=== PATIENT | male | born 1955 | race Caucasian/White ===

== ENCOUNTER 2019-04-22 15:58 | Inpatient (IN) | payer BC, OTHER ==
[2019-04-22] MEDS ORDERED: ASPIRIN 81 MG PO STA (15:59)
[2019-04-22] MEDS ORDERED: HEPARIN SODIUM,PORCINE 5,000 UNIT/ML 1 ML VIAL IV PRN (15:59)
[2019-04-22] MEDS ORDERED: HEPARIN SODIUM,PORCINE 5,000 UNIT/ML 1 ML VIAL IV ONE (15:59)
[2019-04-22] MEDS ORDERED: NITROGLYCERIN SL TABS 0.4 MG TAB SUBLINGUAL PRN ×2 (15:59→17:21)
[2019-04-22] MEDS ORDERED: HEPARIN SOD,PORK IN 0.45% NACL 25,000 UNIT in 0.45% NACL 1 250ML.BAG IV SCH (16:00)
[2019-04-22] MEDS ORDERED: LABETALOL SYRINGE 5 MG/ML IVP STA (16:02)
[2019-04-22] MEDS: ATORVASTATIN 80 MG TAB PO SCH (16:07)
--- NOTE | 2019-04-22 16:08 | ED ---
Chest Pain HPI - General Chief Complaint: Chest Pain Stated Complaint: STEMI Time Seen by Provider: 04/22/19 15:59 Source: patient, RN notes reviewed, old records reviewed Mode of arrival: ambulatory Limitations: no limitations - History of Present Illness Initial Comments: This is a 63-year-old male the ER for evasive chest pain. Patient presents by E MS for evaluation of chest pain. Patient prehospital EKG showing ST elevation. History obtained from EMS as well as patient patient has high blood pressure high cholesterol. No prior heart attack, patient has seen a data entry representative in the past with no significant findings MD Complaint: chest pain -: hour(s) Onset: during rest, during exertion Pain Location: substernal, left chest Pain Radiation: LUE Severity: moderate Severity scale (1-10): 6 Quality: heaviness Consistency: constant Improves With: nothing Worsens With: nothing Anginal Symptoms: nausea, diaphoresis, dyspnea Treatments Prior to Arrival: none - Related Data Home Medications Medication Instructions Recorded Confirmed No Known Home Medications 04/22/19 04/22/19 Allergies Allergy/AdvReac Type Severity Reaction Status Date / Time No Known Allergies Allergy Verified 04/22/19 16:19 Review of Systems ROS Statement: Those systems with pertinent positive or pertinent negative responses have been documented in the HPI. ROS Other: All systems not noted in ROS Statement are negative. EKG Findings - EKG Comments: EKG Findings:: Prehospital EKG shows ST elevation TN anteriorly with inferior ST depression. Patient did have ventricular tachycardia with cardioversion. EKG shows normal sinus rhythm rate of 90, NM 152, QRS 80, QTC [address] elevation V1 V2 with inferior depression Past Medical History Past Medical History: Hyperlipidemia, Hypertension History of Any Multi-Drug Resistant Organisms: None Reported Past Surgical History: Appendectomy, Tonsillectomy Past Psychological History: No Psychological Hx Reported Smoking Status: Never smoker Past Alcohol Use History: None Reported Past Drug Use History: None Reported General Exam Limitations: no limitations General appearance: alert, in no apparent distress Head exam: Present: atraumatic, normocephalic, normal inspection Eye exam: Present: normal appearance, PERRL, EOMI. Absent: scleral icterus, conjunctival injection, periorbital swelling ENT exam: Present: normal exam, mucous membranes moist Neck exam: Present: normal inspection. Absent: tenderness, meningismus, lymph adenopathy Respiratory exam: Present: normal lung sounds bilaterally. Absent: respiratory distress, wheezes, rales, rhonchi, stridor Cardiovascular Exam: Present: regular rate, normal rhythm, normal heart sounds. Absent: systolic murmur, diastolic murmur, rubs, gallop, clicks GI/Abdominal exam: Present: soft, normal bowel sounds. Absent: distended, tenderness, guarding, rebound, rigid Extremities exam: Present: normal inspection, full ROM, normal capillary refill. Absent: tenderness, pedal edema, joint swelling, calf tenderness Back exam: Present: normal inspection Neurological exam: Present: alert, oriented X3, CN II-XII intact Psychiatric exam: Present: normal affect, normal mood Skin exam: Present: warm, dry, intact, normal color. Absent: rash Course Vital Signs 04/22/19 04/22/19 15:59 16:00 Temperature 98.2 F Pulse Rate 94 Pulse Rate [ 98 Respiratory Coordinator ] Respiratory 18 Rate Blood Pressure 180/86 O2 Sat by Pulse 98 Oximetry - Reevaluation(s) Reevaluation #1: 04/22/19 16:07 STEMI page STEMI prehospital EKG, cardiology team evaluated at bedside Reevaluation #2: 04/22/19 16:07 Medical record is reviewed Chest Pain MDM - MDM 63 male the ER for evaluation chest pain. Patient is positive ST elevation, patient brought in by EMS with prehospital EMS EKG showing ST elevation, patient did go into ventricular tachycardia or fibrillation was cardioverted, defibrillated. Patient admitted to the Pharmaceutical Analyst for current intervention Critical Care Time Critical Care Time: Yes Total Critical Care Time: 31 Disposition Clinical Impression: ST elevation myocardial infarction (STEMI) Disposition: ADMITTED IP TO THIS HOSP
[2019-04-22] MEDS ORDERED: METOPROLOL TARTRATE 5 MG/5 ML VIAL IVP ONE (16:10)
[2019-04-22 16:38] LABS: Basophils # (A) 0.1 k/uL (0-0.2); Basophils % (A) 1 %; Eosinophils # (A) 0.4 k/uL (0-0.7); Eosinophils % (A) 2 %; HCT 53.5 % (39.0-53.0); HGB 17.2 gm/dL (13.0-17.5); Lymphocytes # (A) 5.5 k/uL (1.0-4.8); Lymphocytes % (A) 33 %; MCH 27.1 pg (25.0-35.0); MCHC 32.1 g/dL (31.0-37.0); MCV 84.4 fL (80.0-100.0); Monocytes % (A) 6 %; Neutrophils # (A) 9.2 k/uL (1.3-7.7); Neutrophils % (A) 56 %; RBC 6.34 m/uL (4.30-5.90); RDW 14.7 % (11.5-15.5); WBC 16.5 k/uL (3.8-10.6)
[2019-04-22 16:42] LABS: Platelet Count 73 k/uL (150-450)
[2019-04-22] MEDS ORDERED: LIDOCAINE 1% INJ 10MG/ML (20 ML MDV) ONE (16:46)
[2019-04-22] MEDS ORDERED: MIDAZOLAM (PF) 2 MG/2 ML VIAL IVP ONE (16:46)
[2019-04-22] MEDS ORDERED: VERAPAMIL 2.5 MG/ML 2 ML AMP ONE (16:46)
[2019-04-22 16:47] LABS: ALT 34 U/L (21-72); AST 46 U/L (17-59); Albumin 4.6 g/dL (3.5-5.0); Alkaline Phosphatase 90 U/L (38-126); Anion Gap 13 mmol/L; Blood Urea Nitrogen 15 mg/dL (9-20); Calcium 9.1 mg/dL (8.4-10.2); Carbon Dioxide 22 mmol/L (22-30); Chloride 106 mmol/L (98-107); Glucose 110 mg/dL (74-99); Sodium 141 mmol/L (137-145); Total Bilirubin 0.9 mg/dL (0.2-1.3); Total Protein 7.6 g/dL (6.3-8.2)
[2019-04-22] MEDS ORDERED: LIDOCAINE 1% INJ 10MG/ML (20 ML MDV) SQ ONE (16:48)
[2019-04-22 16:51] LABS: Potassium 4.3 mmol/L (3.5-5.1)
[2019-04-22 16:58] LABS: Magnesium 2.4 mg/dL (1.6-2.3)
[2019-04-22] MEDS ORDERED: IV FLUID CONTINUATION 1,000 ML IV ONE (16:58)
[2019-04-22 17:00] LABS: Creatine Kinase MB 4.2 ng/mL (0.0-2.4)
[2019-04-22] MEDS ORDERED: BIVALIRUDIN BOLUS 250 MG/50 ML IV ONE (17:00)
[2019-04-22] MEDS ORDERED: BIVALIRUDIN 250 MG in SODIUM CHLORIDE 0.9% 34 ML IV ONE (17:00)
[2019-04-22 17:03] LABS: Partial Thromboplastin Time 25.2 sec (22.0-30.0); Prothrombin Time 10.5 sec (9.0-12.0)
[2019-04-22] MEDS ORDERED: PRASUGREL 10 MG TAB ONE (17:04)
[2019-04-22] MEDS ORDERED: PRASUGREL 10 MG TAB PO ONE (17:08)
[2019-04-22] MEDS ORDERED: IOPAMIDOL-370 100ML BTL INJ ONE (17:09)
[2019-04-22] MEDS ORDERED: MAG HYDROX/AL HYDROX/SIMETH 30 ML CUP PO PRN (17:21)
[2019-04-22] MEDS ORDERED: ATROPINE SULFATE 0.1 MG/ML 10ML SYRINGE IV PRN (17:21)
[2019-04-22] MEDS ORDERED: ZOLPIDEM 5 MG TAB PO PRN (17:21)
[2019-04-22] MEDS ORDERED: RX INFO: IV CONTRAST WAS GIVEN 1 EACH MISC MISCELLANE PRN (17:21)
--- NOTE | 2019-04-22 17:28 | P.CRDCN ---
History of Present Illness Consult date: 04/22/19 Chief complaint: Chest pain History of present illness: This is a pleasant 63-year-old gentleman with a past medical history significant for hypertension and dyslipidemia was brought to the emergency room earlier today with chest discomfort turned to be an acute anterior ST elevation myocardial infarction. The patient was in his usual state until earlier today when he started experiencing chest discomfort, in the mid of the chest, as a pressure on the chest. Ambulance was called and on the way to the emergency room, as a matter of fact just before the patient arrived to the emergency room, he did have an episode of V. fib terminated by 200 J and first attempt of shock. In the ER, the EKG showed an acute anterior ST elevation myocardial infarction with reciprocal changes in the inferolateral leads. Subsequently, the patient was taken emergently to the cardiac medical laboratory technician where he underwent heart catheterization from right groin approach and that revealed critical disease involving the proximal LAD with a lesion appears to be calcified in the range of 99.9% with haziness consistent with thrombus formation. The patient underwent successful stenting of the proximal LAD using drug eluting stent with a good angiographic results by the N and reduction of stenosis from 99% to 0%. By the end of the procedure, the patient was chest pain-free but he still have some ST segment elevation. The door to balloon was 65 minutes. The patient is going to be admitted to the intensive care unit where he would be started on dual antiplatelet therapy with aspirin and Effient and also he would be on anti- ischemic medication with metoprolol area beside that he would be on high intensity statin. We'll obtain an echocardiogram tomorrow morning to assess the LV function and wall motion abnormalities. Past Medical History Past Medical History: Hyperlipidemia, Hypertension History of Any Multi-Drug Resistant Organisms: None Reported Past Surgical History: Appendectomy, Tonsillectomy Past Psychological History: No Psychological Hx Reported Smoking Status: Never smoker Past Alcohol Use History: None Reported Past Drug Use History: None Reported Medications and Allergies Home Medications Medication Instructions Recorded Confirmed Type No Known Home Medications 04/22/19 04/22/19 History Allergies Allergy/AdvReac Type Severity Reaction Status Date / Time No Known Allergies Allergy Verified 04/22/19 16:19 Physical Exam Vitals: Vital Signs Temp Pulse Pulse Resp BP Pulse Ox 04/22/19 16:00 98 04/22/19 15:59 98.2 F 94 18 180/86 98 Intake and Output 04/22/19 04/22/19 04/22/19 06:59 14:59 22:59 Other: Weight 104.326 kg - Constitutional General appearance: no acute distress - Respiratory Respiratory: bilateral: CTA - Cardiovascular Rhythm: regular Heart sounds: normal: S1, S2 Results 04/22/19 16:04 04/22/19 16:04 Cardiac Enzymes 04/22/19 04/22/19 04/22/19 Range/Units 16:04 16:04 16:04 AST 46 (17-59) U/L CK-MB (CK-2) 4.2 H (0.0-2.4) ng/mL Troponin I 0.217 H* (0.000-0.034) ng/mL Coagulation 04/22/19 Range/Units 16:04 PT 10.5 (9.0-12.0) sec APTT 25.2 (22.0-30.0) sec CBC 04/22/19 Range/Units 16:04 WBC 16.5 H (3.8-10.6) k/uL RBC 6.34 H (4.30-5.90) m/uL Hgb 17.2 (13.0-17.5) gm/dL Hct 53.5 H (39.0-53.0) % Plt Count 73 L (150-450) k/uL Comprehensive Metabolic Panel 04/22/19 Range/Units 16:04 Sodium 141 (137-145) mmol/L Potassium 4.3 (3.5-5.1) mmol/L Chloride 106 (98-107) mmol/L Carbon Dioxide 22 (22-30) mmol/L BUN 15 (9-20) mg/dL Creatinine 0.83 (0.66-1.25) mg/dL Glucose 110 H (74-99) mg/dL Calcium 9.1 (8.4-10.2) mg/dL AST 46 (17-59) U/L ALT 34 (21-72) U/L Alkaline Phosphatase 90 (38-126) U/L Total Protein 7.6 (6.3-8.2) g/dL Albumin 4.6 (3.5-5.0) g/dL Current Medications Generic Name Dose Route Start Last Admin Trade Name Freq PRN Reason Stop Dose Admin Aspirin 325 mg 04/23/19 09:00 Aspirin PO DAILY [facility] Atorvastatin Calcium 80 mg 04/23/19 09:00 04/22/19 16:07 Lipitor PO 80 mg DAILY [facility] Administration Heparin Sodium (Porcine) 0 unit 04/22/19 15:59 Heparin IV Q6HR PRN Low PTT Protocol Heparin Sodium/Sodium Chloride 250 mls @ 10.005 mls/hr 04/22/19 16:00 25,000 unit/ Sodium Chloride IV .Q24H [facility] Protocol 9.59 UNITS/KG/HR Metoprolol Tartrate 25 mg 04/22/19 21:00 Lopressor PO BID [facility] Nitroglycerin 0.4 mg 04/22/19 15:59 Nitrostat SUBLINGUAL Q5M PRN Chest Pain Intake and Output 04/22/19 04/22/19 04/22/19 06:59 14:59 22:59 Other: Weight 104.326 kg Patient Weight 04/23/19 06:59 Weight 104.326 kg 04/22/19 16:04 04/22/19 16:04 Assessment and Plan Assessment: Assessment #[address] elevation myocardial infarction #2 cardiac arrest was V. fib. Currently the patient is in normal sinus mechanism #3 hypertension #4 dyslipidemia Plan #1 standard right groin care. #2 dual antiplatelet therapy #3 high intensity statin #4 an echocardiogram was Doppler #5 anti-ischemic medication #6 follow up with the patient Thank you for allowing us but spitting his care and we will continue following up with the patient
[2019-04-22] MEDS ORDERED: SODIUM CHLORIDE 0.9% 1,000 ML IV SCH (17:30)
--- NOTE | 2019-04-22 17:35 | XR ---
EXAMINATION TYPE: XR chest 1V portable DATE OF EXAM: 04/22/2019 COMPARISON: None INDICATION: Chest pain TECHNIQUE: Single frontal view of the chest is obtained. FINDINGS: The heart size is normal. The pulmonary vasculature is normal. The lungs are clear. IMPRESSION: 1. No acute pulmonary process.
[2019-04-22 17:42] LABS: Glucose,Whole Blood 118 mg/dL (75-99)
--- NOTE | 2019-04-22 21:10 | HP ---
HISTORY AND PHYSICAL CHIEF COMPLAINT: A 63-year-old white male with history of hypertension dyslipidemia, had some chest discomfort. He was found to have an acute anterior ST wave elevated myocardial infarction. Apparently cardiology came down. He had an episode of V. fib. First attempt at shock. EKG showed the SC. Taken to the cardiac cath, had heart catheterization. Critical disease involving the proximal LAD, calcified 99.9%. He had a successful stenting with drug-eluting stent with down to 0%. He was pain free at that point. He was taken to the ICU. He is on antiplatelet agents and Effient. Cardiology ordered metoprolol and high intensity statin and echo tomorrow. PAST MEDICAL HISTORY: Hypertension, dyslipidemia. SURGERIES: Appendectomy, tonsillectomy. No smoking. No alcohol. No illicit drugs. HOME MEDICATIONS: None. Temp 98.2, pulse 90-94, blood pressure 170s-180s/50s-60s. No acute distress. LUNGS: Clear. CARDIAC: S1-S2. GI: Soft. HEMATOLOGY: Negative Homans. ASSESSMENT: 1. Acute non anterior ST elevated myocardial infarction, status post left anterior descending PTCA. 2. Cardiac arrest versus ventricular fibrillation. 3. Hypertension. 4. Dyslipidemia. Dual antiplatelet agents, high-density statins, echo in the morning. Risk factor modification will be attempted. MMODL / IJN: [id number] /
[2019-04-22] MEDS: METOPROLOL TARTRATE 25 MG TAB PO SCH (21:18)
--- NOTE | 2019-04-22 22:01 | CC ---
CARDIAC CATHETERIZATION REPORT DATE OF SERVICE: April 22, 2019 PERFORMING PHYSICIAN: Jorge Vallejo MD, heating element repairer. PROCEDURE PERFORMED: 1. Selective right and left coronary angiogram. 2. Left heart catheterization. 3. Successful stenting of the proximal left anterior descending artery using a 3.25 x 15 mm Xience FELIPE with an excellent angiographic results and reduction of stenosis from 99% to 0%. INDICATION: This is a 63-year-old gentleman with history of hypertension and dyslipidemia who presented to the emergency room with chest discomfort and on the way to the ER, he went into VFib where he received shock by EMS. In the ER, he was found to be in acute anterior ST-elevation myocardial infarction. Because of that, an emergent heart catheterization was advised. APPROACH: Right common femoral artery. COMPLICATION: None. LEVEL OF SEDATION: Moderate with sedation length of 36 minutes. PROCEDURE DESCRIPTION: After obtaining an informed consent, the patient was brought to cardiac director geophysical laboratory. The right common femoral artery was cannulated using micropuncture technique, the micropuncture wire passed easily. Then I placed a 6-[place] Islander sheath in the right common femoral artery. After that I did selective right and left coronary angiogram. Selective right coronary angiogram was performed using JR4 catheter. Selective left coronary angiogram was performed using the XB 35 LAD guide. I did left heart catheterization using the JR4 catheter which flipped into the LV then and pullback across aortic valve. After that, I did intervene on the LAD. Please see a separate paragraph for that. SELECTIVE CORONARY ANGIOGRAM: 1. The right coronary artery is a large caliber vessel and it is a dominant vessel. The RCA is diffusely diseased up to about 50% in the proximal portion. Distally bifurcates into PDA and PLV branches, both appeared to be angiographically normal. 2. The left main is angiographically normal. The left main has mild disease only. It bifurcates into left circumflex, ramus intermedius, and left anterior descending artery. 3. The left circumflex is a large caliber vessel. It is a nondominant vessel. The left circumflex is angiographically normal and in the midportion gives rise into OM branch which appeared to be angiographically normal. 4. The ramus intermedius is a large caliber vessel and seems to be angiographically normal. 5. The LAD: The proximal LAD appeared to have a tight lesion in the range of 99.9%. This is by the bifurcation of a very small 1st diagonal branch. The mid LAD appeared to be normal and gives rise into a second diagonal branch which seems to be angiographically normal and the LAD after that appeared to have mild disease only. HEMODYNAMICS: The left ventricular end-diastolic pressure was about 4-6 mmHg without significant gradient across aortic valve. PCI OF THE LAD: Anticoagulation was initiated using Angiomax. Subsequently I did engage the left main using XB 35 LAD guide. I did cross the lesion using a run-through wire. Subsequently I did balloon angioplasty using 2.5 x 12 mm balloon before I deployed a 3.25 x 15 mm Xience FELIPE where the stent was positioned under fluoroscopy guidance and deployed under 14 atmospheres for 20 seconds with the following angiogram showing excellent angiographic results. The procedure was completed without any complication. CONCLUSION: 1. Acute anterior ST-elevation myocardial infarction complicated by cardiac arrest with VFib. 2. Critical disease involving the proximal LAD with thrombus formation. 3. Successful stenting of the mid LAD, the proximal LAD using 325 x 15 mm Xience FELIPE with an excellent angiographic results and reduction of stenosis from 99% to 0%. 4. Intermediate disease involving the right coronary artery in the proximal portion. POSTPROCEDURE MANAGEMENT: 1. Dual anti-platelet therapy. 2. Risk factor modifications. 3. Follow up with the patient. MMODL / IJN: [id number] /
[2019-04-23 05:01] LABS: Basophils # (A) 0.1 k/uL (0-0.2); Basophils % (A) 1 %; Eosinophils # (A) 0.2 k/uL (0-0.7); Eosinophils % (A) 2 %; HCT 47.6 % (39.0-53.0); HGB 15.3 gm/dL (13.0-17.5); Lymphocytes # (A) 2.4 k/uL (1.0-4.8); Lymphocytes % (A) 19 %; MCH 27.4 pg (25.0-35.0); MCHC 32.2 g/dL (31.0-37.0); MCV 85.1 fL (80.0-100.0); Mean Platelet Volume 8.2; Monocytes # (A) 0.7 k/uL (0-1.0); Monocytes % (A) 6 %; Neutrophils # (A) 8.7 k/uL (1.3-7.7); Neutrophils % (A) 71 %; Platelet Count 64 k/uL (150-450); RDW 14.7 % (11.5-15.5); WBC 12.4 k/uL (3.8-10.6)
[2019-04-23 05:14] LABS: ALT 45 U/L (21-72); AST 43 U/L (17-59); Albumin 3.4 g/dL (3.5-5.0); Alkaline Phosphatase 79 U/L (38-126); Anion Gap 6 mmol/L; Blood Urea Nitrogen 12 mg/dL (9-20); Calcium 8.1 mg/dL (8.4-10.2); Carbon Dioxide 24 mmol/L (22-30); Chloride 108 mmol/L (98-107); Cholesterol 180 mg/dL (<200); Glucose 104 mg/dL (74-99); HDL Cholesterol 29 mg/dL (40-60); Potassium 4.2 mmol/L (3.5-5.1); Sodium 138 mmol/L (137-145); Total Bilirubin 0.9 mg/dL (0.2-1.3); Total Protein 5.8 g/dL (6.3-8.2); Triglycerides 121 mg/dL (<150)
[2019-04-23 05:15] LABS: LDL Cholesterol,Calculated 127 mg/dL (0-99)
--- NOTE | 2019-04-23 08:15 | P.PN ---
Subjective Progress Note Date: 04/23/19 Principal diagnosis: Chest pain This is a 63-year-old gentleman with hypertension and dyslipidemia who was brought by ambulance to the emergency room after he was diagnosed with acute anterior ST patient myocardial infarction. In route, the patient developed V. fib requiring shock. He underwent an emergent heart catheterization and was found to have critical disease involving the proximal LAD which was a stented with a good results by the end. On follow-up with him today, 04/23/2019, he is asymptomatic. He is hemodynamically stable. The right groin is soft and nontender and without any bruises. An echocardiogram is in process to be done. He continues to be on dual antiplatelet therapy along with statin. The patient can be transferred out of the ICU. Objective - Vital Signs Vital signs: Vital Signs Temp 98.2 F 04/23/19 04:00 Pulse 68 04/23/19 07:00 Resp 17 04/23/19 07:00 BP 140/74 04/23/19 07:00 Pulse Ox 94 L 04/23/19 07:00 Intake & Output 04/22/19 04/23/19 04/23/19 18:59 06:59 18:59 Intake Total 300 1280 0 Output Total 650 0 Balance 300 630 0 Weight 104.326 kg 106.8 kg Intake: IV 300 700 0 Sodium Chloride 0.9% 1, 100 700 0 000 ml @ 100 mls/hr IV . Q10H [facility] Rx#:[id number] Oral 580 Output: Urine 650 0 - Constitutional General appearance: Present: no acute distress - Respiratory Respiratory: bilateral: CTA - Cardiovascular Rhythm: regular Heart sounds: normal: S1, S2 - Labs CBC & Chem 7: 04/23/19 04:35 04/23/19 04:35 Labs: Abnormal Lab Results - Last 24 Hours (Table) 04/22/19 04/22/19 04/22/19 Range/Units 16:04 16:04 16:04 WBC 16.5 H (3.8-10.6) k/uL RBC 6.34 H (4.30-5.90) m/uL Hct 53.5 H (39.0-53.0) % Plt Count 73 L (150-450) k/uL Neutrophils # 9.2 H (1.3-7.7) k/uL Lymphocytes # 5.5 H (1.0-4.8) k/uL Chloride (98-107) mmol/L Creatinine (0.66-1.25) mg/dL Glucose (74-99) mg/dL POC Glucose (mg/dL) (75-99) mg/dL Calcium (8.4-10.2) mg/dL Magnesium 2.4 H (1.6-2.3) mg/dL Total Creatine Kinase (55-170) U/L CK-MB (CK-2) (0.0-2.4) ng/mL Troponin I 0.217 H* (0.000-0.034) ng/mL Total Protein (6.3-8.2) g/dL Albumin (3.5-5.0) g/dL LDL Cholesterol, Calc (0-99) mg/dL HDL Cholesterol (40-60) mg/dL 04/22/19 04/22/19 04/22/19 Range/Units 16:04 16:04 17:41 WBC (3.8-10.6) k/uL RBC (4.30-5.90) m/uL Hct (39.0-53.0) % Plt Count (150-450) k/uL Neutrophils # (1.3-7.7) k/uL Lymphocytes # (1.0-4.8) k/uL Chloride (98-107) mmol/L Creatinine (0.66-1.25) mg/dL Glucose 110 H (74-99) mg/dL POC Glucose (mg/dL) 118 H (75-99) mg/dL Calcium (8.4-10.2) mg/dL Magnesium (1.6-2.3) mg/dL Total Creatine Kinase 187 H (55-170) U/L CK-MB (CK-2) 4.2 H (0.0-2.4) ng/mL Troponin I (0.000-0.034) ng/mL Total Protein (6.3-8.2) g/dL Albumin (3.5-5.0) g/dL LDL Cholesterol, Calc (0-99) mg/dL HDL Cholesterol (40-60) mg/dL 04/22/19 04/23/19 04/23/19 Range/Units 21:49 04:35 04:35 WBC 12.4 H (3.8-10.6) k/uL RBC (4.30-5.90) m/uL Hct (39.0-53.0) % Plt Count 64 L (150-450) k/uL Neutrophils # 8.7 H (1.3-7.7) k/uL Lymphocytes # (1.0-4.8) k/uL Chloride 108 H (98-107) mmol/L Creatinine 0.65 L (0.66-1.25) mg/dL Glucose 104 H (74-99) mg/dL POC Glucose (mg/dL) (75-99) mg/dL Calcium 8.1 L (8.4-10.2) mg/dL Magnesium (1.6-2.3) mg/dL Total Creatine Kinase (55-170) U/L CK-MB (CK-2) (0.0-2.4) ng/mL Troponin I 1.380 H* (0.000-0.034) ng/mL Total Protein 5.8 L (6.3-8.2) g/dL Albumin 3.4 L (3.5-5.0) g/dL LDL Cholesterol, Calc 127 H (0-99) mg/dL HDL Cholesterol 29 L (40-60) mg/dL Assessment and Plan Assessment: Assessment #[address] elevation myocardial infarction and status post PCI of the LAD #2 cardiac arrest was V. fib. Currently the patient is in normal sinus mechanism #3 hypertension #4 dyslipidemia Plan #1 continue the current medical regimen including dual antiplatelet therapy and high intensity statin #2 follow-up on the echocardiogram #3 the patient can be transferred out of the ICU
[2019-04-23] MEDS: ATORVASTATIN 80 MG TAB PO SCH (09:39)
[2019-04-23] MEDS: METOPROLOL TARTRATE 25 MG TAB PO SCH ×2 (09:39→20:45)
[2019-04-23] MEDS: ASPIRIN 325 MG TAB PO SCH (09:39)
[2019-04-23 12:28] VITALS: BMI 35.8
--- NOTE | 2019-04-23 14:53 | ECHOF ---
Referral Reason:STEMI MEASUREMENTS -------- HEIGHT: 172.7 cm WEIGHT: 106.6 kg BP: 137/76 RVIDd: 3.5 cm (< 3.3) IVSd: 1.4 cm (0.6 - 1.1) LVIDd: 4.6 cm (3.9 - 5.3) LVPWd: 1.3 cm (0.6 - 1.1) IVSs: 2.1 cm LVIDs: 3.0 cm LVPWs: 1.8 cm LA Diam: 3.4 cm (2.7 - 3.8) LAESV Index (A-L): 18.93 ml/m Ao Diam: 3.8 cm (2.0 - 3.7) AV Cusp: 2.4 cm (1.5 - 2.6) MV EXCURSION: 13.015 mm (> 18.000) MV EF SLOPE: 42 mm/s (70 - 150) EPSS: 0.7 cm MV E Dougie: 0.84 m/s MV DecT: 212 ms MV A Dougie: 0.94 m/s MV E/A Ratio: 0.89 FINDINGS -------- Sinus rhythm. This was a technically good study. The left ventricular size is normal. There is moderate concentric left ventricular hypertrophy. O verall left ventricular systolic function is normal with, an EF between 60 - 65 %. The right ventricle is normal in size. Normal LA size by volume 22+/-6 ml/m2. The right atrium is normal in size. Interatrial and interventricular septum intact. There is mild aortic valve sclerosis. Mild mitral annular calcification present. Mild tricuspid regurgitation present. There is no pulmonic regurgitation present. The aortic root is dilated measuring 3.8cm. Normal inferior vena cava with normal inspiratory collapse consistent with estimated right atrial pre ssure of 5 mmHg. There is no pericardial effusion. CONCLUSIONS -------- 1. Sinus rhythm. 2. This was a technically good study. 3. The left ventricular size is normal. 4. There is moderate concentric left ventricular hypertrophy. 5. Overall left ventricular systolic function is normal with, an EF between 60 - 65 %. 6. The right ventricle is normal in size. 7. Normal LA size by volume 22+/-6 ml/m2. 8. The right atrium is normal in size. 9. Interatrial and interventricular septum intact. 10. There is mild aortic valve sclerosis. 11. Mild mitral annular calcification present. 12. Mild tricuspid regurgitation present. 13. There is no pulmonic regurgitation present. 14. The aortic root is dilated measuring 3.8cm. 15. Normal inferior vena cava with normal inspiratory collapse consistent with estimated right atrial pressure of 5 mmHg. 16. There is no pericardial effusion. ROLLER LEVELER: Isa Ozuna RDCS
[2019-04-23 15:53] VITALS: RESP 16
[2019-04-23] MEDS: PRASUGREL 10 MG TAB PO SCH (15:53)
--- NOTE | 2019-04-23 20:08 | PN ---
PROGRESS NOTE SUBJECTIVE: 63-year-old white male with STEMI, status post PTCA of the LAD. He was having no chest pain. No shortness of breath. Discussed the low HDL levels and high LDL levels and home medications. Expect discharge home in the morning. CARDIOVASCULAR: S1, S2. Abdomen is soft. Lungs are clear. Psych: Fair mood and affect. ASSESSMENT: 1. Status post ST elevation myocardial infarction. 2. Dyslipidemia. 3. Status post PTCA of the LAD. Discharge home in the morning. MMODL / IJN: [id number] /
[2019-04-24 07:23] VITALS: TEMP 97.6
[2019-04-24 08:29] LABS: Platelet Count 79 k/uL (150-450)
[2019-04-24] MEDS: PRASUGREL 10 MG TAB PO SCH (08:43)
[2019-04-24] MEDS: ASPIRIN 325 MG TAB PO SCH (08:43)
[2019-04-24] MEDS: ATORVASTATIN 80 MG TAB PO SCH (08:43)
[2019-04-24] MEDS: METOPROLOL TARTRATE 25 MG TAB PO SCH (08:43)
[2019-04-24 11:52] VITALS: BP 137/85; PULSE 71
[2019-04-24 11:52] LABS: Hemoglobin A1C 6.1 % (4.0-6.0)
--- NOTE | 2019-04-24 14:48 | P.PN ---
Subjective Progress Note Date: 04/24/19 This is a pleasant 63-year-old gentleman with a past medical history significant for hypertension and dyslipidemia was brought to the emergency room earlier today with chest discomfort turned to be an acute anterior ST elevation myocardial infarction. The patient was in his usual state until earlier today when he started experiencing chest discomfort, in the mid of the chest, as a pressure on the chest. Ambulance was called and on the way to the emergency room, as a matter of fact just before the patient arrived to the emergency room, he did have an episode of V. fib terminated by 200 J and first attempt of shock. In the ER, the EKG showed an acute anterior ST elevation myocardial infarction with reciprocal changes in the inferolateral leads. Subsequently, the patient was taken emergently to the cardiac botany laboratory assistant where he underwent heart catheterization from right groin approach and that revealed critical disease involving the proximal LAD with a lesion appears to be calcified in the range of 99.9% with haziness consistent with thrombus formation. The patient underwent successful stenting of the proximal LAD using drug eluting stent with a good angiographic results by the N and reduction of stenosis from 99% to 0%. By the end of the procedure, the patient was chest pain-free but he still have some ST segment elevation. The door to balloon was 65 minutes. The patient is going to be admitted to the intensive care unit where he would be started on dual antiplatelet therapy with aspirin and Effient and also he would be on anti- ischemic medication with metoprolol area beside that he would be on high intensity statin. We'll obtain an echocardiogram tomorrow morning to assess the LV function and wall motion abnormalities. 04/24/2019 Echocardiogram with Doppler study was performed which revealed an ejection fraction of 60-65%. Patient was seen and examined this morning, feels well, denies any chest pain and is breathing overall has been stable. No arrhythmias have been noted on the monitor. Hemodynamically stable. Objective - Vital Signs Vital signs: Vital Signs Temp 97.6 F 04/24/19 07:18 Pulse 71 04/24/19 11:50 Resp 16 04/24/19 11:50 BP 137/85 04/24/19 11:50 Pulse Ox 98 04/24/19 11:50 Intake & Output 04/23/19 04/24/19 04/24/19 18:59 06:59 18:59 Intake Total 240 480 Output Total 600 Balance -360 480 Weight 106.8 kg 106.2 kg Intake: IV 0 Sodium Chloride 0.9% 1, 0 000 ml @ 100 mls/hr IV . Q10H [facility] Rx#:[id number] Oral 240 480 Output: Urine 600 Other: Voiding Method Urinal # Voids 1 1 - Exam PHYSICAL EXAMINATION: GENERAL: 83-year-old gentleman in no acute distress at the time of my examination HEENT: Head is atraumatic, normocephalic. Pupils equal, round. Sclera anicteric. Conjunctiva are clear. Mucous membranes of the mouth are moist. Neck is supple. There is no elevated jugular venous pressure. No carotid bruit is heard. HEART EXAMINATION: Heart S1, S2 normal. No murmur or gallop heard. CHEST EXAMINATION: Lungs are clear to auscultation and precussion. No chest wall tenderness is noted on palpation or with deep breathing. ABDOMEN: Soft, nontender. Bowel sounds are heard. No organomegaly noted. EXTREMITIES: 2+ peripheral pulses with no evidence of peripheral edema and no calf tenderness noted. NEUROLOGIC patient is awake, alert and oriented 3 . . - Labs CBC & Chem 7: 04/24/19 06:11 04/23/19 04:35 Labs: Abnormal Lab Results - Last 24 Hours (Table) 04/23/19 04/24/19 Range/Units 04:35 06:11 Plt Count 79 L (150-450) k/uL Hemoglobin A1c 6.1 H (4.0-6.0) % Assessment and Plan Plan: Assessment and plan #1 acute anterior wall MT status post angioplasty and stenting of the LAD #2 cardiac arrest with ventricular fibrillation, remaining in normal sinus rhythm, LV function by echo is normal #3 hypertension #4 hyperlipidemia Plan From cardiology's perspective, patient may be able to be discharged home today. He'll be discharged home on aspirin 81 mg daily, Lipitor 80 mg daily, Lopressor 25 mg one tablet by mouth twice a day, Effient 10 mg daily, Cozaar 25 mg daily and sublingual nitroglycerin as needed for chest pain. Follow-up appointment in the office with Dr. Guerrero post discharge. DNP note has been reviewed, I agree with a documented findings and plan of care. Patient was seen and examined.
== END 2019-04-24 13:37 | disposition home or self-care (01) | DRG 246 ==
LOC: EC 15:58 → 2SICU 15:59 → 3SCARD 04-23 15:14
PROVIDERS: ADMIT Family Medicine; ATTEND Family Medicine
PROC: B2111ZZ Fluoroscopy of Multiple Coronary Arteries using Low Osmolar Contrast (ICD-10-PCS; 2019-04-22)
PROC: 027034Z Dilation of Coronary Artery, One Artery with Drug-eluting Intraluminal Device, Percutaneous Approach (ICD-10-PCS; principal; 2019-04-22 16:48)
PROC: 4A023N7 Measurement of Cardiac Sampling and Pressure, Left Heart, Percutaneous Approach (ICD-10-PCS; 2019-04-22 16:48)
DX: I21.09 ST elevation (STEMI) myocardial infarction involving other coronary artery of anterior wall (principal); I46.9 Cardiac arrest, cause unspecified; I49.01 Ventricular fibrillation; E78.00 Pure hypercholesterolemia, unspecified; E78.5 Hyperlipidemia, unspecified; I10 Essential (primary) hypertension; I25.10 Atherosclerotic heart disease of native coronary artery without angina pectoris; Z90.49 Acquired absence of other specified parts of digestive tract
CPT/HCPCS: 71045; 80053; 80061; 82550; 82553; 83036; 83690; 83735; 83880; 84443; 84484; 85025; 85049; 85610; 85730; 93005; 93306; 93458; 96374; 96375; 99291; C1874

== ENCOUNTER → 2021-10-05 | Outpatient (CLI) | payer OTHER ==
[2021-10-05 16:09] LABS: Basophils # (A) 0.1 k/uL (0-0.2); Basophils % (A) 1 %; Eosinophils # (A) 0.4 k/uL (0-0.7); Eosinophils % (A) 3 %; HCT 47.1 % (39.0-53.0); HGB 15.7 gm/dL (13.0-17.5); Lymphocytes # (A) 3.4 k/uL (1.0-4.8); Lymphocytes % (A) 30 %; MCH 28.6 pg (25.0-35.0); MCHC 33.3 g/dL (31.0-37.0); MCV 85.9 fL (80.0-100.0); Mean Platelet Volume 9.1; Monocytes # (A) 0.7 k/uL (0-1.0); Monocytes % (A) 6 %; Neutrophils # (A) 6.3 k/uL (1.3-7.7); Neutrophils % (A) 55 %; RBC 5.48 m/uL (4.30-5.90); RDW 14.3 % (11.5-15.5); WBC 11.3 k/uL (3.8-10.6)
[2021-10-05 16:10] LABS: Platelet Count 45 k/uL (150-450)
== END | disposition home or self-care (01) ==
LOC: LABWHC1 15:13
PROVIDERS: ATTEND Family Medicine
DX: D69.6 Thrombocytopenia, unspecified (principal)
CPT/HCPCS: 36415; 85025

== ENCOUNTER → 2021-12-24 | Outpatient (CLI) | payer OTHER ==
[2021-12-24 16:29] LABS: Basophils # (A) 0.08 X 10*3/uL (0.00-0.10); Basophils % (A) 0.7 %; Eosinophils # (A) 0.31 X 10*3/uL (0.04-0.35); Eosinophils % (A) 2.8 %; HCT 50.4 % (39.6-50.0); HGB 15.6 g/dL (13.0-17.0); Lymphocytes % (A) 29.2 %; MCH 27.6 pg (27.0-32.0); Mean Platelet Volume 11.4 fL (9.5-12.2); Monocytes # (A) 1.01 X 10*3/uL (0.20-1.00); Monocytes % (A) 9.2 %; Neutrophils # (A) 6.29 X 10*3/uL (1.80-7.70); Neutrophils % (A) 57.5 %; Platelet Count 43 X 10*3/uL (140-440); RBC 5.66 X 10*6/uL (4.40-5.60); RDW 13.8 % (11.5-14.5); WBC 10.96 X 10*3/uL (4.50-10.00)
== END | disposition home or self-care (01) ==
LOC: LABWHC1 08:55
PROVIDERS: ATTEND Emergency Medicine
DX: Z00.00 Encounter for general adult medical examination without abnormal findings (principal)
CPT/HCPCS: 36415; 85025

== ENCOUNTER → 2022-09-10 | Outpatient (CLI) | payer OTHER ==
--- NOTE | 2022-09-10 09:52 | US ---
EXAMINATION TYPE: US abdomen complete DATE OF EXAM: 09/10/2022 COMPARISON: NONE CLINICAL HISTORY: D69.6 THROMBOCYTOPENIA, UNSPECIFIED. TECHNIQUE: Multiple sonographic images of the abdomen are obtained. FINDINGS: EXAM MEASUREMENTS: Liver Length: 16.5 cm normal less than 15.5 cm. Gallbladder Wall: 0.23 cm CBD: 0.34 cm Spleen: 8.7 cm Right Kidney: 11.7 x 5.1 x 4.9 cm Left Kidney: 11.0 x 6.1 x 4.8 cm RADIO BROADCASTER NOTES: Exam limited by overlying bowel gas Pancreas: Obscured by bowel gas Liver: Increased attenuation Gallbladder: wnl Evidence for sonographic Sweeney's sign: No CBD: wnl Spleen: wnl Right Kidney: wnl Left Kidney: wnl Upper IVC: wnl Abd Aorta: Obscured by overlying bowel gas IMPRESSION: 1. Minimal hepatomegaly. Mild fatty infiltration of the liver is present.
[2022-09-10 11:18] LABS: % Iron Saturation 12.57 (15.00-50.00); African American GFR (CKD) 107.8 (60.0-200.0); Albumin 4.4 g/dL (3.8-4.9); Albumin/Globulin Ratio 2.01 (1.60-3.17); Anion Gap 11.5 mmol/L (10.00-18.00); BUN/Creat Ratio 14.58 Ratio (12.00-20.00); Blood Urea Nitrogen 12.1 mg/dL (9.0-27.0); Calcium 8.7 mg/dL (8.7-10.3); Carbon Dioxide 23.9 mmol/L (20.0-27.5); Globulin 2.2 g/dL (1.6-3.3); Magnesium 2.2 mg/dL (1.5-2.4); Potassium 4.2 mmol/L (3.5-5.5); Total Bilirubin 0.7 mg/dL (0.30-1.20); Total Protein 6.6 g/dL (6.2-8.2)
== END | disposition home or self-care (01) ==
LOC: RADUSWWP 06:45
PROVIDERS: ATTEND Internal Medicine Hematology & Oncology
DX: D69.6 Thrombocytopenia, unspecified (principal); R16.0 Hepatomegaly, not elsewhere classified; K76.0 Fatty (change of) liver, not elsewhere classified
CPT/HCPCS: 76700; 80053; 82607; 82728; 83540; 83550; 83615; 83735

== ENCOUNTER 2023-08-29 08:48 | Emergency (ER) | payer MEDICARE, OTHER ==
[2023-08-29] MEDS ORDERED: KETOROLAC 15 MG/ML 1 ML VIAL IVP STA (09:14)
[2023-08-29] MEDS ORDERED: SODIUM CHLORIDE 0.9% 500 ML 500 ML IV ONE (09:14)
--- NOTE | 2023-08-29 09:15 | ED ---
General Adult HPI - General Chief complaint: Abdominal Pain Stated complaint: Abd Pain Time Seen by Provider: 08/29/23 08:54 Source: patient, RN notes reviewed, old records reviewed Mode of arrival: ambulatory Limitations: no limitations - History of Present Illness Initial comments: 67-year-old male presenting for evaluation of right flank pain. Pain is been present for the past 2 days. Initially woke the patient from sleep. He had some associated nausea without significant vomiting. No fever. He did have chills associated with this and this morning noted hematuria. - Related Data Previous Rx's Medication Instructions Recorded Aspirin EC [Ecotrin Low Dose] 81 mg PO DAILY #30 tablet. 04/24/19 Atorvastatin [Lipitor] 80 mg PO DAILY #30 tab 04/24/19 Losartan Potassium [Cozaar] 25 mg PO DAILY #30 tablet 04/24/19 Metoprolol Tartrate [Lopressor] 25 mg PO BID #60 tab 04/24/19 Nitroglycerin Sl Tabs [Nitrostat] 0.4 mg SUBLINGUAL Q5M PRN #100 tab 04/24/19 Prasugrel [Effient] 10 mg PO DAILY #30 tab 04/24/19 Ibuprofen [Motrin] 600 mg PO Q8HR PRN #24 tab 08/29/23 Ondansetron Odt [Zofran Odt] 4 mg PO Q8HR PRN #10 tab 08/29/23 Tamsulosin [Flomax] 0.4 mg PO DAILY #30 cap 08/29/23 Allergies Allergy/AdvReac Type Severity Reaction Status Date / Time No Known Allergies Allergy Verified 04/22/19 16:19 Review of Systems ROS Statement: Those systems with pertinent positive or pertinent negative responses have been documented in the HPI. ROS Other: All systems not noted in ROS Statement are negative. Past Medical History Past Medical History: Coronary Artery Disease (CAD), Hyperlipidemia, Hypertension Additional Past Medical History / Comment(s): Chronic low platelets Last Myocardial Infarction Date:: 04/22/19 History of Any Multi-Drug Resistant Organisms: None Reported Past Surgical History: Appendectomy, Tonsillectomy Past Anesthesia/Blood Transfusion Reactions: No Reported Reaction Past Psychological History: No Psychological Hx Reported Smoking Status: Never smoker Past Alcohol Use History: None Reported Past Drug Use History: None Reported - Past Family History Mother Family Medical History: Myocardial Infarction (LA) General Exam Limitations: no limitations General appearance: alert, in no apparent distress Head exam: Present: atraumatic, normocephalic Eye exam: Present: normal appearance ENT exam: Present: normal exam Neck exam: Present: normal inspection Respiratory exam: Present: normal lung sounds bilaterally. Absent: respiratory distress Cardiovascular Exam: Present: regular rate, normal rhythm GI/Abdominal exam: Present: soft. Absent: distended, tenderness, guarding Extremities exam: Present: normal inspection Neurological exam: Present: alert, oriented X3, CN II-XII intact. Absent: motor sensory deficit Skin exam: Present: warm, dry, intact. Absent: cyanosis, diaphoretic Course Vital Signs 08/29/23 08/29/23 08:56 11:28 Temperature 98.2 F 98 F Pulse Rate 71 74 Respiratory 20 16 Rate Blood Pressure 137/74 138/78 O2 Sat by Pulse 99 98 Oximetry Medical Decision Making - Medical Decision Making Was pt. sent in by a medical professional or institution (, PA, [employer], urgent care, hospital, or penitentiary...) When possible be specific @ -No Did you speak to anyone other than the patient for history (EMS, parent, family, police, friend...)? What history was obtained from this source @ -No Did you review nursing and triage notes (agree or disagree)? Why? @ -I reviewed and agree with nursing and triage notes Were old charts reviewed (outside hosp., previous admission, EMS record, old EKG, old radiological studies, urgent care reports/EKG's, penitentiary records)? Report findings @ -No old charts were reviewed Differential Diagnosis (chest pain, altered mental status, abdominal pain women, abdominal pain men, vaginal bleeding, weakness, fever, dyspnea, syncope, headache, dizziness, GI bleed, back pain, seizure, CVA, palpatations, mental health, musculoskeletal)? @ Differential Abdominal Pain Men: Appendicitis, cholecystitis, diverticulosis, ischemic bowel, pancreatitis, hepatitis, UTI, gastroenteritis, AAA, incarcerated hernia, bowel obstruction, constipation, inflammatory bowel, hepatitis, peptic ulcer disease, splenic infarction, perforated viscus, testicular torsion, this is not meant to be an all-inclusive list EKG interpreted by me (3pts min.). @ -As above X-rays interpreted by me (1pt min.). @ -None done CT interpreted by me (1pt min.). @ -[CT without contrast showing an obstructing stone in the mid right ureter with associated hydronephrosis and hydroureter U/S interpreted by me (1pt. min.). @ -None done What testing was considered but not performed or refused? (CT, X-rays, U/S, la bs)? Why? @ -None What meds were considered but not given or refused? Why? @ -None Did you discuss the management of the patient with other professionals (professionals i.e. , PA, [employer], lab, RT, psych nurse, social scientist, senior security architect, teacher, earth science technical officer, pillowcase maker)? Give summary @ -No Was smoking cessation discussed for >3mins.? @ -No Was critical care preformed (if so, how long)? @ -No Were there social determinants of health that impacted care today? How? (Homelessness, low income, unemployed, alcoholism, drug addiction, transportation, low edu. Level, literacy, decrease access to med. care, snf, rehab)? @ -No Was there de-escalation of care discussed even if they declined (Discuss DNR or withdrawal of care, Hospice)? DNR status @ -No What co-morbidities impacted this encounter? (DM, HTN, Smoking, COPD, CAD, Cancer, CVA, ARF, Chemo, Hep., AIDS, mental health diagnosis, sleep apnea, morbid obesity)? @ -[Coronary artery disease, previous kidney stone Was patient admitted / discharged? Hospital course, mention meds given and route, prescriptions, significant lab abnormalities, going to OR and other pertinent info. @ -67-year-old male with 44-48 hours of right flank pain and hematuria. Patient has an obstructing stone, approximately 3 mm in the right mid ureter with associated hydronephrosis. He has a leukocytosis and a mild acute kidney injury. He is given IV fluids and IV Toradol in the emergency department. Urinalysis predominantly red cells Undiagnosed new problem with uncertain prognosis? @ -No Drug Therapy requiring intensive monitoring for toxicity (Heparin, Nitro, Insulin, Cardizem)? @ -No Were any procedures done? @ -No Diagnosis/symptom? @ -Renal colic, obstructing renal calculus Acute, or Chronic, or Acute on Chronic? @ -[Acute Uncomplicated (without systemic symptoms) or Complicated (systemic symptoms)? @ -default Side effects of treatment? @ -No Exacerbation, Progression, or Severe Exacerbation? @ -No Poses a threat to life or bodily function? How? (Chest pain, USA, LA, pneumonia, PE, COPD, DKA, ARF, appy, cholecystitis, CVA, Diverticulitis, Homicidal, Suicidal, threat to staff... and all critical care pts) @ -Low risk at this time - Lab Data Result diagrams: 08/29/23 09:30 08/29/23 09:30 Lab Results 08/29/23 08/29/23 08/29/23 Range/Units 09:30 09:30 09:30 WBC 14.8 H (3.8-10.6) k/uL RBC 5.49 (4.30-5.90) m/uL Hgb 15.8 (13.0-17.5) gm/dL Hct 47.1 (39.0-53.0) % MCV 85.8 (80.0-100.0) fL MCH 28.7 (25.0-35.0) pg MCHC 33.5 (31.0-37.0) g/dL RDW 13.9 (11.5-15.5) % Plt Count 43 L (150-450) k/uL MPV 9.9 Neutrophils % 80 % Lymphocytes % 14 % Monocytes % 5 % Eosinophils % 0 % Basophils % 0 % Neutrophils # 11.8 H (1.3-7.7) k/uL Lymphocytes # 2.0 (1.0-4.8) k/uL Monocytes # 0.7 (0-1.0) k/uL Eosinophils # 0.0 (0-0.7) k/uL Basophils # 0.0 (0-0.2) k/uL PT 10.1 (9.0-12.0) sec INR 1.0 (<1.2) APTT 23.1 (22.0-30.0) sec Sodium 137 (137-145) mmol/L Potassium 4.4 (3.5-5.1) mmol/L Chloride 104 (98-107) mmol/L Carbon Dioxide 24 (22-30) mmol/L Anion Gap 9 mmol/L BUN 19 (9-20) mg/dL Creatinine 1.47 H (0.66-1.25) mg/dL Est GFR (CKD-EPI)AfAm 57 (>60 ml/min/1.73 sqM) Est GFR (CKD-EPI)NonAf 49 (>60 ml/min/1.73 sqM) Glucose 103 H (74-99) mg/dL Calcium 8.9 (8.4-10.2) mg/dL Total Bilirubin 1.1 (0.2-1.3) mg/dL AST 30 (17-59) U/L ALT 26 (4-49) U/L Alkaline Phosphatase 102 (38-126) U/L Total Protein 6.8 (6.3-8.2) g/dL Albumin 4.1 (3.5-5.0) g/dL Lipase 89 (23-300) U/L Urine Color Urine Appearance (Clear) Urine pH (5.0-8.0) Ur Specific [place] (1.001-1.035) Urine Protein (Negative) Urine Glucose (UA) (Negative) Urine Ketones (Negative) Urine Blood (Negative) Urine Nitrite (Negative) Urine Bilirubin (Negative) Urine Urobilinogen (<2.0) mg/dL Ur Leukocyte Esterase (Negative) Urine RBC (0-5) /hpf Urine WBC (0-5) /hpf Urine WBC Clumps (None) /hpf Ur Squamous Epith Cells (0-4) /hpf Urine Bacteria (None) /hpf Urine Mucus (None) /hpf 08/29/23 Range/Units 10:30 WBC (3.8-10.6) k/uL RBC (4.30-5.90) m/uL Hgb (13.0-17.5) gm/dL Hct (39.0-53.0) % MCV (80.0-100.0) fL MCH (25.0-35.0) pg MCHC (31.0-37.0) g/dL RDW (11.5-15.5) % Plt Count (150-450) k/uL MPV Neutrophils % % Lymphocytes % % Monocytes % % Eosinophils % % Basophils % % Neutrophils # (1.3-7.7) k/uL Lymphocytes # (1.0-4.8) k/uL Monocytes # (0-1.0) k/uL Eosinophils # (0-0.7) k/uL Basophils # (0-0.2) k/uL PT (9.0-12.0) sec INR (<1.2) APTT (22.0-30.0) sec Sodium (137-145) mmol/L Potassium (3.5-5.1) mmol/L Chloride (98-107) mmol/L Carbon Dioxide (22-30) mmol/L Anion Gap mmol/L BUN (9-20) mg/dL Creatinine (0.66-1.25) mg/dL Est GFR (CKD-EPI)AfAm (>60 ml/min/1.73 sqM) Est GFR (CKD-EPI)NonAf (>60 ml/min/1.73 sqM) Glucose (74-99) mg/dL Calcium (8.4-10.2) mg/dL Total Bilirubin (0.2-1.3) mg/dL AST (17-59) U/L ALT (4-49) U/L Alkaline Phosphatase (38-126) U/L Total Protein (6.3-8.2) g/dL Albumin (3.5-5.0) g/dL Lipase (23-300) U/L Urine Color Yellow Urine Appearance Cloudy (Clear) Urine pH 5.5 (5.0-8.0) Ur Specific [place] 1.021 (1.001-1.035) Urine Protein Trace H (Negative) Urine Glucose (UA) Negative (Negative) Urine Ketones Negative (Negative) Urine Blood Large H (Negative) Urine Nitrite Negative (Negative) Urine Bilirubin Negative (Negative) Urine Urobilinogen <2.0 (<2.0) mg/dL Ur Leukocyte Esterase Negative (Negative) Urine RBC >182 H (0-5) /hpf Urine WBC 6 H (0-5) /hpf Urine WBC Clumps Occasional H (None) /hpf Ur Squamous Epith Cells 1 (0-4) /hpf Urine Bacteria Rare H (None) /hpf Urine Mucus Occasional H (None) /hpf Disposition Clinical Impression: Calculus of kidney Disposition: HOME SELF-CARE Condition: Good Instructions (If sedation given, give patient instructions): Renal Colic (ED), How to Strain Your Urine (ED) Additional Instructions: Please drink plenty of fluids. Please return the emergency department with fever, vomiting or worsening pain. Prescriptions: Tamsulosin [Flomax] 0.4 mg PO DAILY #30 cap Ibuprofen [Motrin] 600 mg PO Q8HR PRN #24 tab PRN Reason: Pain Ondansetron Odt [Zofran Odt] 4 mg PO Q8HR PRN #10 tab PRN Reason: Vomiting Is patient prescribed a controlled substance at d/c from ED?: No Referrals: Anand Lovett MD [Primary Care Provider] - 1-2 days Gautam Brandt MD [STAFF PHYSICIAN] - 1-2 days Time of Disposition: 11:16
[2023-08-29 10:01] LABS: ALT 26 U/L (4-49); AST 30 U/L (17-59); African American GFR (CKD) 57 (>60 ml/min/1.73 sqM); Albumin 4.1 g/dL (3.5-5.0); Alkaline Phosphatase 102 U/L (38-126); Anion Gap 9 mmol/L; Blood Urea Nitrogen 19 mg/dL (9-20); Calcium 8.9 mg/dL (8.4-10.2); Carbon Dioxide 24 mmol/L (22-30); Chloride 104 mmol/L (98-107); Glucose 103 mg/dL (74-99); Lipase 89 U/L (23-300); Non-African American GFR(CKD) 49 (>60 ml/min/1.73 sqM); Potassium 4.4 mmol/L (3.5-5.1); Sodium 137 mmol/L (137-145); Total Bilirubin 1.1 mg/dL (0.2-1.3); Total Protein 6.8 g/dL (6.3-8.2)
[2023-08-29 10:06] LABS: Partial Thromboplastin Time 23.1 sec (22.0-30.0); Prothrombin Time 10.1 sec (9.0-12.0)
--- NOTE | 2023-08-29 10:13 | CT ---
EXAMINATION TYPE: CT abdomen pelvis wo con CT DLP: 1358 mGycm, Automated exposure control for dose reduction was used. DATE OF EXAM: 08/29/2023 10:05 AM COMPARISON: Abdominal ultrasound 09/10/2022 CLINICAL INDICATION:Male, 67 years old with history of rt flank pain; RT flank pain TECHNIQUE: Standard CT of the abdomen and pelvis without IV or oral contrast. Lack of IV or oral co ntrast limits evaluation of solid and hollow organ viscera. Coronal and sagittal reformats were perfo rmed. FINDINGS: LOWER CHEST: The visualized lung bases are clear. Mild coronary arterial calcifications. ABDOMEN LIVER: Unremarkable noncontrast appearance GALLBLADDER AND BILE DUCTS: Unremarkable noncontrast appearance PANCREAS: Unremarkable noncontrast appearance SPLEEN: Unremarkable noncontrast appearance ADRENAL GLANDS: Unremarkable noncontrast appearance. KIDNEYS AND URETERS: Mild right hydroureteronephrosis with an obstructing 2 mm calculus in the proxim al ureter. No left hydronephrosis or renal calculi. PELVIS BLADDER: Unremarkable REPRODUCTIVE: Unremarkable. ABDOMEN & PELVIS STOMACH AND BOWEL: Small hiatal hernia, duodenum is unremarkable. No focal bowel wall thickening or s urrounding inflammatory changes. No evidence of bowel obstruction. PERITONEUM: No evidence of pneumoperitoneum or free fluid. VASCULATURE: Mild atherosclerotic calcifications are present throughout the abdominal aorta and its b ranches. No evidence of aortic aneurysm. MUSCULOSKELETAL: No acute osseous abnormalities. Mild disc degeneration changes are present throughou t the thoracolumbar spine. LYMPH NODES: No gross evidence for lymphadenopathy. SOFT TISSUE/ABDOMINAL WALL: Small fat filled umbilical hernia. Fat filled right inguinal hernia. IMPRESSION: Mild right hydroureteronephrosis with an obstructing 2 mm calculus within the proximal right ureter.
[2023-08-29 10:15] LABS: Basophils % (A) 0 %; Eosinophils % (A) 0 %; HCT 47.1 % (39.0-53.0); HGB 15.8 gm/dL (13.0-17.5); Lymphocytes % (A) 14 %; MCH 28.7 pg (25.0-35.0); MCHC 33.5 g/dL (31.0-37.0); MCV 85.8 fL (80.0-100.0); Mean Platelet Volume 9.9; Monocytes # (A) 0.7 k/uL (0-1.0); Monocytes % (A) 5 %; Neutrophils # (A) 11.8 k/uL (1.3-7.7); Neutrophils % (A) 80 %; RBC 5.49 m/uL (4.30-5.90); RDW 13.9 % (11.5-15.5); WBC 14.8 k/uL (3.8-10.6)
[2023-08-29 10:17] LABS: Platelet Count 43 k/uL (150-450)
[2023-08-29 11:08] LABS: Appearance,Urine Cloudy (Clear); Bacteria,Urine Rare /hpf; Bilirubin,Urine Negative (Negative); Blood,Urine Large (Negative); Color,Urine Yellow; Glucose,Urine (UA) Negative (Negative); Ketones,Urine Negative (Negative); Leukocyte Esterase,Urine Negative (Negative); Mucus,Urine Occasional /hpf; Nitrite,Urine Negative (Negative); PH, Urine 5.5 (5.0-8.0); Protein,Urine Trace (Negative); RBC,Urine >182 /hpf (0-5); Specific Gravity,Urine 1.021 (1.001-1.035); Squamous Epithelial Cell,Urine 1 /hpf (0-4); Urobilinogen,Urine <2.0 mg/dL (<2.0); WBC,Urine 6 /hpf (0-5)
[2023-08-29 11:33] VITALS: BP 138/78; PULSE 74; RESP 16; TEMP 98
== END 2023-08-29 11:28 | disposition home or self-care (01) ==
LOC: EC 08:48
DX: N13.2 Hydronephrosis with renal and ureteral calculous obstruction (principal); N17.9 Acute kidney failure, unspecified; I10 Essential (primary) hypertension; I25.10 Atherosclerotic heart disease of native coronary artery without angina pectoris; I25.2 Old myocardial infarction; Z90.49 Acquired absence of other specified parts of digestive tract
CPT/HCPCS: 36415; 80053; 83690; 85025; 85610; 85730; 81001; 74176; 99284; 96374; 96361; J1885

== ENCOUNTER 2024-09-12 18:18 | Emergency (ER) | payer MEDICARE ==
[2024-09-12 18:38] VITALS: TEMP 97.5
--- NOTE | 2024-09-12 19:21 | ED ---
Abdominal Pain HPI - General Chief Complaint: Abdominal Pain Stated Complaint: Lower back pain Time Seen by Provider: 09/12/24 18:30 Source: patient, RN notes reviewed Mode of arrival: ambulatory Limitations: no limitations - History of Present Illness Initial Comments: This is a 68-year-old male with history of nephrolithiasis who presents emergency department for chief complaint of right flank pain that started yesterday. States that during the day today symptoms worsened and he felt mildly nauseated as well. States that the pain is located of his right flank denies radiation of pain. He denies recent injuries or falls. States that this pain feels the same as when he had a kidney stone approximately 1 month ago. He denies hematuria, increase in urinary frequency or urgency, dysuria. He has not attempted to take any medications today to help symptoms. denies nausea, vomiting, fevers, or chills. - Related Data Previous Rx's Medication Instructions Recorded Aspirin EC [Ecotrin Low Dose] 81 mg PO DAILY #30 tablet. 04/24/19 Atorvastatin [Lipitor] 80 mg PO DAILY #30 tab 04/24/19 Losartan Potassium [Cozaar] 25 mg PO DAILY #30 tablet 04/24/19 Metoprolol Tartrate [Lopressor] 25 mg PO BID #60 tab 04/24/19 Nitroglycerin Sl Tabs [Nitrostat] 0.4 mg SUBLINGUAL Q5M PRN #100 tab 04/24/19 Prasugrel [Effient] 10 mg PO DAILY #30 tab 04/24/19 Ibuprofen [Motrin] 600 mg PO Q8HR PRN #24 tab 08/29/23 Ondansetron Odt [Zofran Odt] 4 mg PO Q8HR PRN #10 tab 08/29/23 Tamsulosin [Flomax] 0.4 mg PO DAILY #30 cap 08/29/23 Allergies Allergy/AdvReac Type Severity Reaction Status Date / Time No Known Allergies Allergy Verified 09/12/24 18:38 Review of Systems ROS Statement: Those systems with pertinent positive or pertinent negative responses have been documented in the HPI. ROS Other: All systems not noted in ROS Statement are negative. Past Medical History Past Medical History: Coronary Artery Disease (CAD), Hyperlipidemia, Hypertensi on Additional Past Medical History / Comment(s): Chronic low platelets Last Myocardial Infarction Date:: 04/22/19 History of Any Multi-Drug Resistant Organisms: None Reported Past Surgical History: Appendectomy, Tonsillectomy Past Anesthesia/Blood Transfusion Reactions: No Reported Reaction Past Psychological History: No Psychological Hx Reported Smoking Status: Never smoker Past Alcohol Use History: None Reported Past Drug Use History: None Reported - Past Family History Mother Family Medical History: Myocardial Infarction (NH) General Exam Limitations: no limitations Eye exam: Present: normal appearance, PERRL, EOMI. Absent: scleral icterus, co njunctival injection, periorbital swelling ENT exam: Present: normal exam, mucous membranes moist Respiratory exam: Present: normal lung sounds bilaterally. Absent: respiratory distress, wheezes, rales, rhonchi, stridor Cardiovascular Exam: Present: regular rate, normal rhythm, normal heart sounds. Absent: systolic murmur, diastolic murmur, rubs, gallop, clicks GI/Abdominal exam: Present: soft, normal bowel sounds. Absent: distended, tenderness, guarding, rebound, rigid Extremities exam: Present: normal inspection, full ROM, normal capillary refill. Absent: tenderness, pedal edema, joint swelling, calf tenderness Back exam: Present: normal inspection, CVA tenderness (R) Skin exam: Present: warm, dry, intact, normal color. Absent: rash Course Vital Signs 09/12/24 09/12/24 18:35 22:34 Temperature 97.5 F L Pulse Rate 76 85 Respiratory 22 18 Rate Blood Pressure 170/96 143/80 O2 Sat by Pulse 96 98 Oximetry Medical Decision Making - Medical Decision Making Was pt. sent in by a medical professional or institution (, PA, TICK INSPECTOR, urgent care, hospital, or intermediate...) When possible be specific @ -No Did you speak to anyone other than the patient for history (EMS, parent, family, police, friend...)? What history was obtained from this source @ -No Did you review nursing and triage notes (agree or disagree)? Why? @ -I reviewed and agree with nursing and triage notes Were old charts reviewed (outside hosp., previous admission, EMS record, old EKG, old radiological studies, urgent care reports/EKG's, intermediate records)? Report findings @ -No old charts were reviewed Differential Diagnosis (chest pain, altered mental status, abdominal pain women, abdominal pain men, vaginal bleeding, weakness, fever, dyspnea, syncope, headache, dizziness, GI bleed, back pain, seizure, CVA, palpatations, mental health, musculoskeletal)? @ -Differential Abdominal Pain Men: Appendicitis, cholecystitis, diverticulosis, ischemic bowel, pancreatitis, hepatitis, UTI, gastroenteritis, AAA, incarcerated hernia, bowel obstruction, constipation, inflammatory bowel, hepatitis, peptic ulcer disease, splenic infarction, perforated viscus, testicular torsion, this is not meant to be an all-inclusive list EKG interpreted by me (3pts min.). @ -none X-rays interpreted by me (1pt min.). @ -None done CT interpreted by me (1pt min.). @ -CT of the abdomen and pelvis without contrast reveals no evidence for obstructive uropathy or renal calculus with circumferential urinary bladder wall prominence, correlate for cystitis U/S interpreted by me (1pt. min.). @ -None done What testing was considered but not performed or refused? (CT, X-rays, U/S, labs)? Why? @ -None What meds were considered but not given or refused? Why? @ -None Did you discuss the management of the patient with other professionals (professionals i.e. , PA, TICK INSPECTOR, lab, RT, psych nurse, manager social responsibility, brick tester, teacher, catapult and arresting gear officer, mattress spring encaser)? Give summary @ -No Was smoking cessation discussed for >3mins.? @ -No Was critical care preformed (if so, how long)? @ -No Were there social determinants of health that impacted care today? How? (Homelessness, low income, unemployed, alcoholism, drug addiction, transportation, low edu. Level, literacy, decrease access to med. care, fdc, rehab)? @ -No Was there de-escalation of care discussed even if they declined (Discuss DNR or withdrawal of care, Hospice)? DNR status @ -No What co-morbidities impacted this encounter? (DM, HTN, Smoking, COPD, CAD, Cancer, CVA, ARF, Chemo, Hep., AIDS, mental health diagnosis, sleep apnea, morbid obesity)? @ -None Was patient admitted / discharged? Hospital course, mention meds given and route, prescriptions, significant lab abnormalities, going to OR and other pertinent info. @ -discharged. 68 year old male with right flank pain. On my evaluation patient is resting comfortably in no signs of acute distress. Physical examination reveals flank pain to palpation with no rebound tenderness. No radiation of the pain. Patient provided with dose of Toradol pending laboratory results and CT imaging. He is agree with this plan. Leukocytosis of 14.3, thrombocytopenia 49, CMP unremarkable, urinalysis unremarkable. CTA unremarkable for acute process, circumferential urinary bladder wall prominence. Patient was informed of that was completed today recommend that he follow-up outpatient with urology for further evaluation. All questions answered at bedside and strict return parameters discussed with the patient he is verbalized understanding. Discussed with Dr. Michel Undiagnosed new problem with uncertain prognosis? @ -No Drug Therapy requiring intensive monitoring for toxicity (Heparin, Nitro, Insulin, Cardizem)? @ -No Were any procedures done? @ -No Diagnosis/symptom? @ -right flank pain Acute, or Chronic, or Acute on Chronic? @ -acute Uncomplicated (without systemic symptoms) or Complicated (systemic symptoms)? @ -uncomplicated Side effects of treatment? @ -No Exacerbation, Progression, or Severe Exacerbation? @ -No Poses a threat to life or bodily function? How? (Chest pain, [place], NH, pneumonia, PE, COPD, DKA, ARF, appy, cholecystitis, CVA, Diverticulitis, Homicidal, Suicidal, threat to staff... and all critical care pts) @ -No - Lab Data Result diagrams: 09/12/24 19:35 09/12/24 19:35 Lab Results 09/12/24 09/12/24 09/12/24 Range/Units 19:35 19:35 19:35 WBC 14.3 H (3.8-10.6) k/uL RBC 5.89 (4.30-5.90) m/uL Hgb 16.7 (13.0-17.5) gm/dL Hct 51.8 (39.0-53.0) % MCV 88.0 (80.0-100.0) fL MCH 28.3 (25.0-35.0) pg MCHC 32.2 (31.0-37.0) g/dL RDW 14.0 (11.5-15.5) % Plt Count 49 L (150-450) k/uL MPV 9.6 Neutrophils % 68 % Lymphocytes % 22 % Monocytes % 5 % Eosinophils % 1 % Basophils % 1 % Neutrophils # 9.8 H (1.3-7.7) k/uL Lymphocytes # 3.2 (1.0-4.8) k/uL Monocytes # 0.7 (0-1.0) k/uL Eosinophils # 0.2 (0-0.7) k/uL Basophils # 0.1 (0-0.2) k/uL Manual Slide Review Performed Sodium 138 (137-145) mmol/L Potassium 4.7 (3.5-5.1) mmol/L Chloride 106 (98-107) mmol/L Carbon Dioxide 22 (22-30) mmol/L Anion Gap 10 mmol/L BUN 15 (9-20) mg/dL Creatinine 0.78 (0.66-1.25) mg/dL Est GFR (CKD-EPI)AfAm >90 (>60 ml/min/1.73 sqM) Est GFR (CKD-EPI)NonAf >90 (>60 ml/min/1.73 sqM) Glucose 97 (74-99) mg/dL Plasma Lactic Acid Denys 1.5 (0.7-2.0) mmol/L Calcium 8.7 (8.4-10.2) mg/dL Total Bilirubin 1.3 (0.2-1.3) mg/dL AST 38 (17-59) U/L ALT 34 (4-49) U/L Alkaline Phosphatase 96 (38-126) U/L Total Protein 7.0 (6.3-8.2) g/dL Albumin 4.5 (3.5-5.0) g/dL Urine Color Urine Appearance (Clear) Urine pH (5.0-8.0) Ur Specific [place] (1.001-1.035) Urine Protein (Negative) Urine Glucose (UA) (Negative) Urine Ketones (Negative) Urine Blood (Negative) Urine Nitrite (Negative) Urine Bilirubin (Negative) Urine Urobilinogen (<2.0) mg/dL Ur Leukocyte Esterase (Negative) 09/12/24 Range/Units 19:55 WBC (3.8-10.6) k/uL RBC (4.30-5.90) m/uL Hgb (13.0-17.5) gm/dL Hct (39.0-53.0) % MCV (80.0-100.0) fL MCH (25.0-35.0) pg MCHC (31.0-37.0) g/dL RDW (11.5-15.5) % Plt Count (150-450) k/uL MPV Neutrophils % % Lymphocytes % % Monocytes % % Eosinophils % % Basophils % % Neutrophils # (1.3-7.7) k/uL Lymphocytes # (1.0-4.8) k/uL Monocytes # (0-1.0) k/uL Eosinophils # (0-0.7) k/uL Basophils # (0-0.2) k/uL Manual Slide Review Sodium (137-145) mmol/L Potassium (3.5-5.1) mmol/L Chloride (98-107) mmol/L Carbon Dioxide (22-30) mmol/L Anion Gap mmol/L BUN (9-20) mg/dL Creatinine (0.66-1.25) mg/dL Est GFR (CKD-EPI)AfAm (>60 ml/min/1.73 sqM) Est GFR (CKD-EPI)NonAf (>60 ml/min/1.73 sqM) Glucose (74-99) mg/dL Plasma Lactic Acid Denys (0.7-2.0) mmol/L Calcium (8.4-10.2) mg/dL Total Bilirubin (0.2-1.3) mg/dL AST (17-59) U/L ALT (4-49) U/L Alkaline Phosphatase (38-126) U/L Total Protein (6.3-8.2) g/dL Albumin (3.5-5.0) g/dL Urine Color Yellow Urine Appearance Clear (Clear) Urine pH 5.0 (5.0-8.0) Ur Specific [place] 1.026 (1.001-1.035) Urine Protein Negative (Negative) Urine Glucose (UA) Negative (Negative) Urine Ketones Negative (Negative) Urine Blood Negative (Negative) Urine Nitrite Negative (Negative) Urine Bilirubin Negative (Negative) Urine Urobilinogen <2.0 (<2.0) mg/dL Ur Leukocyte Esterase Negative (Negative) Disposition Clinical Impression: Flank pain Disposition: HOME SELF-CARE Condition: Stable Instructions (If sedation given, give patient instructions): Flank Pain (ED) Additional Instructions: Please return to the Emergency Department if symptoms worsen or any other concerns. Recommend that you contact your urologist in the morning to schedule follow-up appointment. Is patient prescribed a controlled substance at d/c from ED?: No Referrals: Rafi Reilly DO [Primary Care Provider] - 1-2 days Time of Disposition: 21:55
[2024-09-12] MEDS: KETOROLAC 15 MG/ML 1 ML VIAL IVP STA (19:51)
[2024-09-12] MEDS: SODIUM CHLORIDE 0.9% 1,000 ML IV STA (19:52)
[2024-09-12 19:57] LABS: Basophils # (A) 0.1 k/uL (0-0.2); Basophils % (A) 1 %; Eosinophils # (A) 0.2 k/uL (0-0.7); Eosinophils % (A) 1 %; HCT 51.8 % (39.0-53.0); HGB 16.7 gm/dL (13.0-17.5); Lymphocytes # (A) 3.2 k/uL (1.0-4.8); Lymphocytes % (A) 22 %; MCH 28.3 pg (25.0-35.0); MCHC 32.2 g/dL (31.0-37.0); Mean Platelet Volume 9.6; Monocytes # (A) 0.7 k/uL (0-1.0); Monocytes % (A) 5 %; Neutrophils # (A) 9.8 k/uL (1.3-7.7); Neutrophils % (A) 68 %; RBC 5.89 m/uL (4.30-5.90); WBC 14.3 k/uL (3.8-10.6)
[2024-09-12 20:06] LABS: Appearance,Urine Clear (Clear); Bilirubin,Urine Negative (Negative); Blood,Urine Negative (Negative); Color,Urine Yellow; Glucose,Urine (UA) Negative (Negative); Ketones,Urine Negative (Negative); Leukocyte Esterase,Urine Negative (Negative); Nitrite,Urine Negative (Negative); Protein,Urine Negative (Negative); Specific Gravity,Urine 1.026 (1.001-1.035); Urobilinogen,Urine <2.0 mg/dL (<2.0)
[2024-09-12 20:11] LABS: ALT 34 U/L (4-49); African American GFR (CKD) >90 (>60 ml/min/1.73 sqM); Albumin 4.5 g/dL (3.5-5.0); Anion Gap 10 mmol/L; Blood Urea Nitrogen 15 mg/dL (9-20); Calcium 8.7 mg/dL (8.4-10.2); Carbon Dioxide 22 mmol/L (22-30); Chloride 106 mmol/L (98-107); Glucose 97 mg/dL (74-99); Non-African American GFR(CKD) >90 (>60 ml/min/1.73 sqM); Sodium 138 mmol/L (137-145); Total Bilirubin 1.3 mg/dL (0.2-1.3)
[2024-09-12 20:17] LABS: AST 38 U/L (17-59); Alkaline Phosphatase 96 U/L (38-126); Potassium 4.7 mmol/L (3.5-5.1)
[2024-09-12 21:04] LABS: Platelet Count 49 k/uL (150-450)
--- NOTE | 2024-09-12 21:37 | CT ---
EXAMINATION TYPE: CT abdomen pelvis wo con CT DLP: 1111.8 mGycm, Automated exposure control for dose reduction was used. DATE OF EXAM: 09/12/2024 8:49 PM COMPARISON: CT abdomen pelvis most recent from 08/29/2023 CLINICAL INDICATION: Male, 68 years old with history of flank pain; Flank Pain. TECHNIQUE: Axial CT abdomen pelvis wo con;Sagittal and coronal reformats were created on a separate workstation. Contrast used: mL of , (none if empty) Oral contrast used: without Oral Contrast (none if empty) FINDINGS: LOWER CHEST: Unremarkable ABDOMEN LIVER: Unremarkable GALLBLADDER AND BILE DUCTS: Unremarkable. PANCREAS: Unremarkable. SPLEEN: Unremarkable. ADRENAL GLANDS: Unremarkable. KIDNEYS AND URETERS: No evidence of hydronephrosis or renal calculus. The ureters are unremarkable. PELVIS BLADDER: There is some circumferential wall prominence with mild haziness around the urinary bladder. REPRODUCTIVE: Unremarkable. ABDOMEN & PELVIS STOMACH AND BOWEL: No evidence of bowel obstruction. PERITONEUM/RETROPERITONEUM: No evidence of pneumoperitoneum or free fluid. VASCULATURE: No evidence of aortic aneurysm. MUSCULOSKELETAL: No acute osseous abnormalities LYMPH NODES: No gross evidence for lymphadenopathy. SOFT TISSUE/ABDOMINAL WALL: Fat-containing umbilical hernia. Right fat-containing inguinal hernia. IMPRESSION: 1. No evidence for obstructive uropathy or renal calculus. 2. Circumferential urinary bladder wall prominence correlate with urinalysis for cystitis. [facility] Valerie Lopez, , 09/12/2024 9:35 PM
[2024-09-12 22:35] VITALS: BP 143/80; PULSE 85; RESP 18
== END 2024-09-12 22:35 | disposition home or self-care (01) ==
LOC: EC 18:18
DX: R10.9 Unspecified abdominal pain (principal)
CPT/HCPCS: 36415; 74176; 80053; 81003; 83605; 85025; 96361; 96374; 99284